=== PATIENT | male | born 1955 | race Caucasian/White ===

== ENCOUNTER → 2023-04-12 | Outpatient (CLI) | payer MEDICARE ==
[2023-04-12 09:04] LABS: African American GFR (CKD) >90 (>60 ml/min/1.73 sqM); Blood Urea Nitrogen 18 mg/dL (9-20); Non-African American GFR(CKD) 89 (>60 ml/min/1.73 sqM)
--- NOTE | 2023-04-12 10:26 | CT ---
INDICATION: Patient age:Male; 68 years old; Reason for study: J44.9 COPD R49.0 DYSPHONIA; PHH. COMPARISON: Chest radiograph 03/04/2023 TECHNIQUE: Multiple thin axial images were obtained through the chest at selected intervals. Prone and supine in spiratory along with supine expiratory images were submitted for review. Please note that due to inte rval acquisition images as defined by high-resolution CT protocol the entire lung parenchyma is not e valuated, therefore small nodular densities may not be visualized. Evaluation of vascular structures , viscera and lymphatics is limited due to lack of intravenous contrast administration. One or more C T dose reduction strategies were utilized during this examination. Total DLP mGycm. FINDINGS: LUNGS: There is no evidence of interstitial thickening, significant groundglass opacity, honeycombing or architectural distortion in the lungs. No bronchiectasis. No acute area of infiltrative or consol idative change. LARGE AIRWAYS: Central airways are patent. No dynamic airway collapse on expiratory imaging. PLEURA: No pleural effusion or thickening. HEART AND PERICARDIUM: Heart is normal in size. There is no pericardial effusion. Mild coronary arter ial calcifications MEDIASTINUM AND HERI: No mediastinal or hilar lymphadenopathy or soft tissue mass. VESSELS: The thoracic aorta is normal in course and caliber. CHEST WALL AND DIAPHRAGM: Normal. LOWER NECK: Please refer to dedicated CT neck of the same day for findings. UPPER ABDOMEN: Left hepatic lobe 2.7 cm cyst. MUSCULOSKELETAL: No acute fracture. Moderate degenerative changes are present in the thoracic spine. IMPRESSION: No evidence for interstitial lung disease.
--- NOTE | 2023-04-12 10:31 | CA ---
Transthoracic Echo Report Name: Rashid Barrientos Age: 68 Gender: M : 1955 Exam Date: 04/12/2023 08:39 Exam Location: [facility] Ht (in): 70 Wt (lb): 269 Ordering Physician: James Torres MD Attending/Referring Phys: Model Maker Daya Rodriguez RDCS Procedure CPT: Indications: J44.9 COPD R49.0 DYSPHONIA Cardiac Hx: Technical Quality: Technically difficult study Contrast 1: Lumason Total Dose (mL): 4 Contrast 2: Total Dose (mL): MEASUREMENTS (Male / Female) Normal Values 2D ECHO LV Diastolic Diameter PLAX 5.5 cm 4.2 - 5.9 / 3.9 - 5.3 cm LV Systolic Diameter PLAX 4.0 cm IVS Diastolic Thickness 1.5 cm 0.6 - 1.0 / 0.6 - 0.9 cm LVPW Diastolic Thickness 1.5 cm 0.6 - 1.0 / 0.6 - 0.9 cm LV Relative Wall Thickness 0.5 LA Volume 80.9 cm??? 18 - 58 / 22 - 52 cm??? M-MODE Aortic Root Diameter MM 3.6 cm LA Systolic Diameter MM 4.7 cm LA Ao Ratio MM 1.3 AV Cusp Separation MM 2.2 cm DOPPLER AV Peak Velocity 182.6 cm/s AV Peak Gradient 13.3 mmHg AV Mean Velocity 108.3 cm/s AV Mean Gradient 5.7 mmHg AV Velocity Time Integral 30.9 cm LVOT Peak Velocity 94.5 cm/s LVOT Peak Gradient 3.6 mmHg LVOT Velocity Time Integral 24.9 cm MV Area PHT 3.5 cm??? Mitral E Point Velocity 91.8 cm/s Mitral A Point Velocity 111.3 cm/s Mitral E to A Ratio 0.8 MV Deceleration Time 215.5 ms MV E' Velocity 7.1 cm/s Mitral E to MV E' Ratio 12.9 TR Peak Velocity 184.4 cm/s TR Peak Gradient 13.6 mmHg Right Ventricular Systolic Press 18.6 mmHg FINDINGS Left Ventricle Left ventricular cavity size normal. Moderately increased left ventricular wall thickness. No obvious regional wall motion abnormalities. Left ventricular ejection fraction is estimated at 55-60 %. Right Ventricle Right ventricle not well visualized. Right ventricular systolic pressure within normal limits. Right Atrium Right atrium not well visualized. Left Atrium Severely increased left atrial volume. Mildly increased left atrial area. Mitral Valve Structurally normal mitral valve. Mild mitral annular calcification. Mild mitral regurgitation. Aortic Valve No aortic valve stenosis or regurgitation.aortic valve not well visualized. Tricuspid Valve Structurally normal tricuspid valve. Mild tricuspid regurgitation. Pulmonic Valve Pulmonic valve not well visualized. Pericardium No pericardial effusion. Aorta Normal size aortic root and proximal ascending aorta. CONCLUSIONS Lumason ECHO contrast used for improved visualization of the endocardial borders (inadequate visualization of two or more contiguous segments). Technically difficult study. 1. Normal size and systolic function 2. Limited Doppler study with mild mitral and tricuspid regurgitation. Previewed by: Dr. Diego Child MD (Electronically Signed) Final Date: 12 April 2023 10:30
--- NOTE | 2023-04-12 10:51 | CT ---
EXAMINATION TYPE: CT soft tissue neck w con CT DLP: 855 mGycm, Automated exposure control for dose reduction was used. DATE OF EXAM: 04/12/2023 10:16 AM COMPARISON: None. CLINICAL INDICATION:Male, 68 years old with history of J44.9 COPD R49.0 DYSPHONIA; PHH, SOB problems TECHNIQUE: Standard enhanced CT of the neck. Axial sections with coronal and sagittal reformats were obtained. Contrast used:100 mL of Isovue 300 with IV Contrast, Oral contrast used: none. FINDINGS: Brain: Visualized portions are grossly unremarkable. Orbits: Unremarkable Sinuses: Mucosal thickening throughout the maxillary sinuses and ethmoid air cells. Spaces of the neck: Clear and symmetric. The vocal cords appear symmetric. [place] tonsil calcificat ions patient's. No evidence for lymphadenopathy. Musculoskeletal: No acute osseous pathology. Degenerative disc disease changes of the visualized spin e are present. Severe degeneration changes of the shoulders. Lymph nodes: Multiple nonenlarged lymph nodes are seen along both anterior chains of the neck. Vascular structures: Patent with atherosclerotic plaque of the internal carotid arteries at the bifur cation. Thoracic Inlet/airway: Airway is patent. The lung apices are clear. Soft tissues/Thyroid: Thyroid and remainder of the soft tissues are unremarkable. Other: none. IMPRESSION 1. Symmetric appearing vocal cords, no definitive evidence for mass. No acute processes definitively visualized no evidence for lymphadenopathy. 2. Atherosclerosis of the carotid bifurcations with at least 25% stenosis bilaterally. 3. Moderate paranasal sinus disease. 4. Severe degeneration changes of the shoulders.
== END | disposition home or self-care (01) ==
LOC: RADECHMAIN 08:10
PROVIDERS: ATTEND Internal Medicine
DX: J44.9 Chronic obstructive pulmonary disease, unspecified (principal); I65.23 Occlusion and stenosis of bilateral carotid arteries; J38.3 Other diseases of vocal cords; I08.1 Rheumatic disorders of both mitral and tricuspid valves; M19.012 Primary osteoarthritis, left shoulder; M19.011 Primary osteoarthritis, right shoulder; J34.89 Other specified disorders of nose and nasal sinuses; R49.0 Dysphonia
CPT/HCPCS: 82565; 84520; 70491; 71250; 36415; C8929; Q9950; Q9967; 93306

== ENCOUNTER → 2023-05-12 | Outpatient (CLI) | payer MEDICARE ==
--- NOTE | 2023-05-12 12:43 | US ---
"EXAMINATION TYPE: US carotid duplex BILAT DATE OF EXAM: 05/12/2023 COMPARISON: NONE CLINICAL INDICATION: Male, 68 years old with history of I65.29 OCCLUSION AND STENOSIS OF UNSPECIFIED CAROT; assess stenosis, no h/o stroke TECHNIQUE: Carotid duplex ultrasound examination. Indirect Doppler criteria was utilized. FINDINGS: EXAM MEASUREMENTS: RIGHT: Peak Systolic Velocity (PSV) cm/sec ----- Right CCA: 40.7 ----- Right ICA: 173 ----- Right ECA: 67.6 ICA/CCA ratio: 4.2 RIGHT: End Diastole cm/sec ----- Right CCA: 8.1 ----- Right ICA: 38.3 ----- Right ECA: 9.7 LEFT: Peak Systolic Velocity (PSV) cm/sec ----- Left CCA: 65.8 ----- Left ICA: 105 ----- Left ECA: 93.5 ICA/CCA ratio: 1.6 LEFT: End Diastole cm/sec ----- Left CCA: 15.9 ----- Left ICA: 32.9 ----- Left ECA: 15.4 VERTEBRALS (direction of flow): Right Vertebral: Antegrade Left Vertebral: Antegrade Rhythm: Normal ELECTRONICS INSPECTOR NOTES: Increased velocities noted at right mid ICA, significant stenosis on the right IMPRESSION: 1. Abnormal ratio on the right suggestive of a significant greater than 70% stenosis of the carotid a rtery. Criteria for Assigning % of Stenosis / Diameter reduction (Estimation based on the indirect measurements of the internal carotid artery velocities (ICA PSV). 1. Normal (no stenosis)=ICA PSV < 125 cm/s: ratio < 2.0: ICA EDV<40 cm/s. 2. Less than 50% stenosis=ICA PSV < 125 cm/s: ratio < 2.0: ICA EDV<40 cm/s. 3. 50 to 69% stenosis=ICA PSV of 125 to 230 cm/s: ration 2.0 ? 4.0: ICA EDV 40-100 cm/s. 4. Greater than 70% stenosis to near occlusion= ICA PSV > 230 cm/s: ratio > 4.0: ICA EDV > 100 cm/s. 5. Near occlusion= ICA PSV velocities may be low or undetectable: variable ratio and ICA EDV. 6. Total occlusion=unable to detect flow. A Yellow level critical message alert has been initiated for Aidan Joseph DO via the [facility] | Critical Results System on 05/12/2023 12:40 PM. This message alert has been sent to Aidan Joseph DO via the preferences provided by the clinician for the receipt of Radiology Critic al Findings. Message ID [id number]."
== END | disposition home or self-care (01) ==
LOC: RADUSWWP 10:43
PROVIDERS: ATTEND Otolaryngology
DX: I65.29 Occlusion and stenosis of unspecified carotid artery (principal)
CPT/HCPCS: 93880